=== PATIENT | female | born 1960 | race Caucasian/White ===

== ENCOUNTER 2017-08-11 13:28 | Emergency (ER) | payer BC ==
[~2017-08-11] VITALS: Ht 172.7 cm; Wt 110.3 kg
[~2017-08-11 13:28] MED LIST: ATOR10TA87 PO; IRBE150T51 PO; MORP100T21 PO; QUET25TA PO; SERT50TA PO
[2017-08-11 14:05] LABS: BASOPHILS % (AUTO) 0.1 % (0-1); EOSINOPHILS # (AUTO) 0.2 X10'3 (0-0.9); EOSINOPHILS % (AUTO) 1.2 % (0-6); HEMATOCRIT 51.4 % (35.0-45.0); HEMOGLOBIN 17.2 g/dl (12.0-16.0); LYMPHOCYTES # (AUTO) 0.5 X10'3 (1.1-4.8); LYMPHOCYTES % (AUTO) 3.7 % (21-51); MEAN CORPUSCULAR HEMOGLOBIN 29.1 PG (27.0-31.0); MEAN CORPUSCULAR HGB CONC 33.5 % (33.0-36.5); MEAN CORPUSCULAR VOLUME 86.8 FL (78-98); MONOCYTES # (AUTO) 0.1 X10'3 (0-0.9); MONOCYTES % (AUTO) 0.5 % (2-12); NEUTROPHILS # (AUTO) 12.5 X10'3 (1.8-7.7); NEUTROPHILS % (AUTO) 94.5 % (42-75); PLATELET COUNT 236 X10'3 (140-440); RED BLOOD COUNT 5.92 X10'6 (4.20-5.60); RED CELL DISTRIBUTION WIDTH 13.7 % (11.5-14.5); WHITE BLOOD COUNT 13.2 X10'3 (4.5-11.0)
[2017-08-11 14:15] LABS: PARTIAL THROMBOPLASTIN TIME 25 SECONDS (22-32); PROTHROMBIN TIME 10.1 SECONDS (9.0-12.0)
[2017-08-11 14:23] LABS: ALANINE AMINOTRANSFERASE 65 U/L (12-78); ALBUMIN 5.1 G/DL (3.4-5.0); ALBUMIN/GLOBULIN RATIO 1.2 (1.1-1.5); ALKALINE PHOSPHATASE 166 IU/L (46-116); AMYLASE 48 U/L (25-115); ANION GAP 13 (8-16); ASPARTATE AMINO TRANSFERASE 44 U/L (10-37); BILIRUBIN,TOTAL 0.7 MG/DL (0.1-1.0); BLOOD UREA NITROGEN 18 MG/DL (7-18); BUN/CREATININE RATIO 20.2 (6.6-38.0); CALCIUM 10.5 MG/DL (8.5-10.1); CHLORIDE 101 MMOL/L (99-107); CREATININE 0.89 MG/DL (0.40-0.90); GLUCOSE 150 MG/DL (70-104); LIPASE 74 U/L (73-393); SODIUM 137 MMOL/L (135-145); TOTAL PROTEIN 9.4 G/DL (6.4-8.2); eGFR 66 ML/MIN
[2017-08-11] MEDS ORDERED: ondansetron/PF 4mg/2ml inj IV ONE (16:15)
[2017-08-11] MEDS ORDERED: fentaNYL/PF 50MCG/1 ML 2ML syringe IV ONE (16:15)
[2017-08-11] MEDS ORDERED: pantoprazole 40 MG vial IV ONE (16:15)
[2017-08-11] MEDS ORDERED: dextrose 5%-normal saline 1,000 ML IV ONE ×2 (16:15→16:30)
[2017-08-11] MEDS ORDERED: normal saline 1000ML IV soln IVB ONE (16:15)
[2017-08-11 16:27] LABS: CLARITY,URINE CLEAR (Clear); COLOR,URINE YELLOW (Yellow); GLUCOSE, URINE NEGATIVE (Neg); KETONES,URINE TRACE mg/dl (Neg); LEUKOCYTE ESTERASE ,URINE NEGATIVE (Neg); NITRITES, URINE NEGATIVE (Neg); OCCULT BLOOD,URINE TRACE-INTACT (Neg); PROTEIN,URINE 30 mg/dl (Neg); UROBILINOGEN,URINE 0.2 E.U/dL (0.2-1.0)
[2017-08-11 16:34] LABS: UA COLLECTION TYPE CLN CATCH MIDSTREAM
[2017-08-11 16:35] LABS: BACTERIA,URINE NONE SEEN /HPF (Neg); RBC,URINE 0-2 /HPF (0-2); WBC,URINE NONE SEEN /HPF (0-4)
[2017-08-11 16:36] LABS: MUCUS STRANDS FEW /LPF (Neg); SQUAMOUS EPITHELIAL CELL,UR MODERATE /LPF (FEW)
[2017-08-11] MEDS ORDERED: morphine 4 MG/ML inj SYRINge IM ONE (18:10)
[2017-08-11] MEDS ORDERED: proCHLORperazine 10 MG/2 ml inj IV ONE (18:10)
[2017-08-11] MEDS ORDERED: morphine 4 MG/ML inj SYRINge IV ONE (19:05)
[2017-08-11] MEDS ORDERED: ONDA8TAB9 PO (19:19)
[2017-08-11] MEDS ORDERED: PANT-47 PO (19:19)
[2017-08-11] MEDS ORDERED: LOPE2CAP PO (19:19)
[2017-08-11 19:45] VITALS: BP 139/82
== END 2017-08-11 19:46 | disposition home or self-care (01) ==
LOC: ER 13:31
DX: K52.9 Noninfective gastroenteritis and colitis, unspecified (principal); G89.29 Other chronic pain; Z98.890 Other specified postprocedural states; Z90.710 Acquired absence of both cervix and uterus; Z86.73 Personal history of transient ischemic attack (TIA), and cerebral infarction without residual deficits; Z88.5 Allergy status to narcotic agent; Z79.899 Other long term (current) drug therapy
CPT/HCPCS: 36415; 70450; 71045; 80053; 81001; 82150; 83690; 84484; 85025; 85610; 85730; 93005; 96361; 96372; 96374; 96375; 99285; C9113; J0780; J2270; J2405; J3010; J7030; J7042

== ENCOUNTER 2018-12-25 11:29 | Emergency (ER) | payer BC ==
[~2018-12-25] VITALS: Ht 172.7 cm; Wt 109.0 kg
[~2018-12-25 11:29] MED LIST changes: +LOPE2CAP PO; +ONDA8TAB9 PO; +PANT-47 PO
[2018-12-25] MEDS ORDERED: cephalexin 250mg capsule PO ONE (12:50)
[2018-12-25] MEDS ORDERED: oxyCODONE/APAP 5-325mg tablet PO ONE (12:50)
[2018-12-25] MEDS ORDERED: sulfamethoxazole/trimethoprim DS (800/160mg) tablet PO ONE (12:50)
[2018-12-25] MEDS ORDERED: OXYC-134 PO (13:27)
[2018-12-25] MEDS ORDERED: BACDS PO (13:28)
[2018-12-25] MEDS ORDERED: CEPH500C5 PO (13:28)
[2018-12-25 13:44] VITALS: BP 125/86
== END 2018-12-25 13:57 | disposition home or self-care (01) ==
LOC: ER 11:29
DX: S80.12XA Contusion of left lower leg, initial encounter (principal); S80.01XA Contusion of right knee, initial encounter; L03.116 Cellulitis of left lower limb; G89.29 Other chronic pain; Z90.710 Acquired absence of both cervix and uterus; Z98.890 Other specified postprocedural states; Z86.73 Personal history of transient ischemic attack (TIA), and cerebral infarction without residual deficits; Z88.5 Allergy status to narcotic agent; Z79.899 Other long term (current) drug therapy; V49.88XA Car occupant (driver) (passenger) injured in other specified transport accidents, initial encounter; Y93.89 Activity, other specified; Y92.413 State road as the place of occurrence of the external cause; Y99.9 Unspecified external cause status
CPT/HCPCS: 73564; 99284